=== PATIENT | male | born 1965 | race Caucasian/White ===

== ENCOUNTER 2019-01-28 20:32 | Emergency (ER) | payer SELFPAY ==
[~2019-01-28] VITALS: Ht 170.2 cm; Wt 96.4 kg
[~2019-01-28 20:32] MED LIST: NOCURR
[2019-01-28] MEDS ORDERED: SODIUM CHLORIDE 0.9% 1,000 ML IV ONE (21:09)
[2019-01-28 21:25] LABS: BASOPHILS % (AUTO) 0.4 % (0.0-2.0); EOSINOPHILS % (AUTO) 0.9 % (1.0-6.0); HEMATOCRIT 39.8 % (41-53); HEMOGLOBIN 13.7 g/dL (13.5-17.5); LYMPHOCYTES % (AUTO) 9.1 % (22.0-44.0); MEAN CORPUSCULAR HGB CONC 34.3 G/dL (31.0-37.0); MEAN CORPUSCULAR VOLUME 96 fL (80-100); MONOCYTES # (AUTO) 0.9 K/uL (0.1-1.0); MONOCYTES % (AUTO) 8.4 % (2.0-9.0); NEUTROPHILS # (AUTO) 8.9 K/uL (1.8-7.7); NEUTROPHILS % (AUTO) 81.2 % (40.0-70.0); PLATELET COUNT (AUTO) 267 K/uL (150-450); RED BLOOD CELL COUNT(AUTO) 4.14 MIL/uL (4.50-5.90); RED CELL DISTRIBUTION WIDTH 13.8 % (11.5-14.5)
[2019-01-28 21:34] LABS: CALCIUM, TOTAL 8.4 mg/dL (8.8-10.5); CREATININE 1.49 mg/dL (0.60-1.30); POTASSIUM 3.3 mmol/L (3.5-5.1)
[2019-01-28 21:40] LABS: ALBUMIN 3.1 g/dL (3.4-5.0); BILIRUBIN,TOTAL 0.3 mg/dL (0.1-1.0); TOTAL PROTEIN, SERUM 6.8 g/dL (6.4-8.2)
[2019-01-28 21:41] LABS: APPEARANCE,URINE CLEAR (CLEAR); BILIRUBIN,URINE NEGATIVE (NEGATIVE); GLUCOSE, URINE (UA) NEGATIVE (NEGATIVE); KETONES,URINE NEGATIVE (NEGATIVE); LEUKOCYTE ESTERASE ,URINE SMALL (NEGATIVE); NITRATE,URINE POSITIVE (NEGATIVE); OCCULT BLOOD,URINE NEGATIVE (NEGATIVE); PH,URINE 7.5 (5.0-8.0); PROTEIN,URINE TRACE (NEGATIVE)
[2019-01-28] MEDS: TAMSULOSIN HCL 0.4 MG CAPSULE PO ONE (21:51)
[2019-01-28 21:55] LABS: RBC,URINE 0-2 /HPF (0-2)
[2019-01-28 22:05] LABS: BACTERIA,URINE Few /HPF (None Seen); SQUAMOUS EPITHELIAL CELL,UR Few /LPF (None Seen); TRANSITIONAL EPI CELLS,URINE Rare /LPF (None Seen)
[2019-01-28] MEDS: SULFAMETHOX/TRIMETH DS 800-160 MG/TABLET PO ONE (22:33)
[2019-01-28] MEDS: POTASSIUM CHLORIDE 20 MEQ ER TABLET PO ONE (22:34)
[2019-01-28 23:21] VITALS: BP 133/72
[2019-01-29 07:05] LABS: GLUCOSE,POINT OF CARE 192 MG/DL (70-110)
== END 2019-01-28 23:31 | disposition home or self-care (01) ==
LOC: EMS 20:33
DX: R33.9 Retention of urine, unspecified (principal); E11.9 Type 2 diabetes mellitus without complications
CPT/HCPCS: 51702

== ENCOUNTER 2019-01-30 18:17 | Emergency (ER) | payer SELFPAY ==
[~2019-01-30] VITALS: Ht 170.2 cm; Wt 100.0 kg
[2019-01-30] MEDS ORDERED: TAMS-1 PO (18:33)
[2019-01-30 18:41] LABS: GLUCOSE,POINT OF CARE 189 MG/DL (70-110)
[2019-01-30 19:34] VITALS: BP 152/95
== END 2019-01-30 19:52 | disposition home or self-care (01) ==
LOC: EMS 18:18
DX: R33.9 Retention of urine, unspecified (principal); E11.9 Type 2 diabetes mellitus without complications
CPT/HCPCS: 51702

== ENCOUNTER 2019-02-07 15:13 | Emergency (ER) | payer MEDICAID ==
[~2019-02-07] VITALS: Ht 165.1 cm; Wt 77.3 kg
[2019-02-07] MEDS ORDERED: TAMS-1 PO (15:25)
[2019-02-07 15:30] LABS: GLUCOSE,POINT OF CARE 126 MG/DL (70-110)
[2019-02-07 15:39] VITALS: BP 154/88
== END 2019-02-07 16:27 | disposition home or self-care (01) ==
LOC: EMS 15:16
DX: Z46.6 Encounter for fitting and adjustment of urinary device (principal); E11.9 Type 2 diabetes mellitus without complications; F17.210 Nicotine dependence, cigarettes, uncomplicated; Z79.899 Other long term (current) drug therapy

== ENCOUNTER 2019-02-08 10:07 | Emergency (ER) | payer MEDICAID ==
[~2019-02-08] VITALS: Ht 170.2 cm; Wt 96.4 kg
[~2019-02-08 10:07] MED LIST changes: -NOCURR; +TAMS-1 PO
[2019-02-08 10:35] LABS: GLUCOSE,POINT OF CARE 152 MG/DL (70-110)
[2019-02-08 11:57] LABS: APPEARANCE,URINE CLEAR (CLEAR); BILIRUBIN,URINE NEGATIVE (NEGATIVE); GLUCOSE, URINE (UA) NEGATIVE (NEGATIVE); KETONES,URINE NEGATIVE (NEGATIVE); LEUKOCYTE ESTERASE ,URINE NEGATIVE (NEGATIVE); NITRATE,URINE NEGATIVE (NEGATIVE); OCCULT BLOOD,URINE NEGATIVE (NEGATIVE); PH,URINE 5.5 (5.0-8.0); PROTEIN,URINE NEGATIVE (NEGATIVE); UROBILINOGEN,URINE 0.2 mg/dL (<=1.0)
[2019-02-08 12:08] LABS: BACTERIA,URINE None Seen /HPF (None Seen); RBC,URINE None Seen /HPF (0-2); SQUAMOUS EPITHELIAL CELL,UR Rare /LPF (None Seen); WBC,URINE None Seen /HPF (0-5)
[2019-02-08 13:15] VITALS: BP 131/74
[2019-02-08] MEDS ORDERED: ACETAMINOPHEN 325 MG TABLET PO ONE (13:15)
== END 2019-02-08 13:20 | disposition home or self-care (01) ==
LOC: EMS 10:08
DX: R33.9 Retention of urine, unspecified (principal); R10.30 Lower abdominal pain, unspecified; E11.9 Type 2 diabetes mellitus without complications; F17.210 Nicotine dependence, cigarettes, uncomplicated
CPT/HCPCS: 51702

== ENCOUNTER 2019-02-21 18:48 | Emergency (ER) | payer MEDICAID ==
[~2019-02-21] VITALS: Ht 170.2 cm; Wt 97.0 kg
[2019-02-21 21:06] LABS: BASOPHILS % (AUTO) 0.4 % (0.0-2.0); EOSINOPHILS % (AUTO) 0.4 % (1.0-6.0); HEMOGLOBIN 14.4 g/dL (13.5-17.5); LYMPHOCYTES # (AUTO) 1.3 K/uL (1.0-4.8); LYMPHOCYTES % (AUTO) 9.3 % (22.0-44.0); MEAN CORPUSCULAR HEMOGLOBIN 32.9 pg (26.0-34.0); MEAN CORPUSCULAR HGB CONC 33.4 G/dL (31.0-37.0); MEAN CORPUSCULAR VOLUME 99 fL (80-100); MONOCYTES # (AUTO) 1.4 K/uL (0.1-1.0); MONOCYTES % (AUTO) 9.8 % (2.0-9.0); NEUTROPHILS # (AUTO) 11.5 K/uL (1.8-7.7); NEUTROPHILS % (AUTO) 80.1 % (40.0-70.0); PLATELET COUNT (AUTO) 313 K/uL (150-450); RED BLOOD CELL COUNT(AUTO) 4.36 MIL/uL (4.50-5.90); RED CELL DISTRIBUTION WIDTH 13.4 % (11.5-14.5)
[2019-02-21 21:15] LABS: CALCIUM, TOTAL 9.3 mg/dL (8.8-10.5); CREATININE 1.4 mg/dL (0.60-1.30); POTASSIUM 4.6 mmol/L (3.5-5.1)
[2019-02-21 21:21] LABS: ALBUMIN 3.8 g/dL (3.4-5.0); BILIRUBIN,TOTAL 0.4 mg/dL (0.1-1.0); TOTAL PROTEIN, SERUM 7.7 g/dL (6.4-8.2)
[2019-02-21 21:32] VITALS: BP 132/72
[2019-02-21 21:46] LABS: APPEARANCE,URINE CLOUDY (CLEAR); BILIRUBIN,URINE NEGATIVE (NEGATIVE); GLUCOSE, URINE (UA) 250 mg/dL (NEGATIVE); KETONES,URINE NEGATIVE (NEGATIVE); LEUKOCYTE ESTERASE ,URINE MODERATE (NEGATIVE); NITRATE,URINE NEGATIVE (NEGATIVE); OCCULT BLOOD,URINE LARGE (NEGATIVE); PROTEIN,URINE SEE CONFIRM (NEGATIVE); UROBILINOGEN,URINE 0.2 mg/dL (<=1.0)
[2019-02-21 22:02] LABS: SULFOSALICYLIC ACID,URINE 4+ (Negative)
[2019-02-21 22:04] LABS: BACTERIA,URINE Few /HPF (None Seen); WBC,URINE 51-100 /HPF (0-5)
[2019-02-21 22:07] LABS: SQUAMOUS EPITHELIAL CELL,UR Few /LPF (None Seen); YEAST,URINE Few /HPF (None Seen)
[2019-02-21] MEDS ORDERED: LIDOCAINE/PF 1% 2 ML VIAL IM ONE (22:15)
[2019-02-21] MEDS ORDERED: CefTRIAXone SODIUM 1 GM/VIAL IM ONE (22:15)
[2019-02-21] MEDS ORDERED: CEPHALEXIN MONOHYDRATE 500 MG CAPSULE PO ONE (22:15)
== END 2019-02-21 22:30 | disposition home or self-care (01) ==
LOC: EMS 18:49
DX: B37.41 Candidal cystitis and urethritis (principal); R30.9 Painful micturition, unspecified; R33.9 Retention of urine, unspecified; R39.89 Other symptoms and signs involving the genitourinary system; E11.9 Type 2 diabetes mellitus without complications; F17.210 Nicotine dependence, cigarettes, uncomplicated
CPT/HCPCS: 36415; 51702; 80053; 81001; 85025; 87077; 87086; 87186; 96372; 99284; 99406; J0696; J3490

== ENCOUNTER 2019-03-22 18:59 | Emergency (ER) | payer MEDICAID, OTHER ==
[~2019-03-22] VITALS: Ht 170.2 cm; Wt 97.3 kg
[2019-03-22] MEDS ORDERED: METF-960 PO (19:40)
[2019-03-22 22:53] VITALS: BP 139/79
== END 2019-03-22 22:57 | disposition home or self-care (01) ==
LOC: EMS 19:01
DX: T83.038A Leakage of other urinary catheter, initial encounter (principal); N39.0 Urinary tract infection, site not specified; R33.9 Retention of urine, unspecified; E11.9 Type 2 diabetes mellitus without complications; F17.210 Nicotine dependence, cigarettes, uncomplicated; Z79.84 Long term (current) use of oral hypoglycemic drugs; Y84.6 Urinary catheterization as the cause of abnormal reaction of the patient, or of later complication, without mention of misadventure at the time of the procedure
CPT/HCPCS: 51702

== ENCOUNTER 2019-04-19 10:47 | Emergency (ER) | payer OTHER ==
[~2019-04-19] VITALS: Ht 170.2 cm; Wt 99.1 kg
[~2019-04-19 10:47] MED LIST changes: +METF-960 PO; -TAMS-1 PO
[2019-04-19] MEDS ORDERED: TAMS-13 PO (11:05)
[2019-04-19 11:15] LABS: GLUCOSE,POINT OF CARE 242 MG/DL (70-110)
[2019-04-19 12:03] VITALS: BP 134/98
== END 2019-04-19 12:12 | disposition home or self-care (01) ==
LOC: EMS 10:49
DX: T83.038A Leakage of other urinary catheter, initial encounter (principal); E11.9 Type 2 diabetes mellitus without complications; F17.210 Nicotine dependence, cigarettes, uncomplicated; Z98.890 Other specified postprocedural states; Z79.84 Long term (current) use of oral hypoglycemic drugs; Z79.899 Other long term (current) drug therapy; Y84.6 Urinary catheterization as the cause of abnormal reaction of the patient, or of later complication, without mention of misadventure at the time of the procedure